=== PATIENT | male | born 1970 | race Caucasian/White ===

== ENCOUNTER 2022-04-07 15:57 | Emergency (ER) | payer SELFPAY ==
[2022-04-07] VITALS (8 sets, daily range): BP systolic 119–148; BP diastolic 66–102; PULSE 61–81; RESP 16; TEMP 36.6; O2SAT 97–99
--- NOTE | 2022-04-07 16:10 | W.ED.DIZZY ---
HPI - Dizziness General: Chief Complaint: Dizziness Stated Complaint: sob Time Seen by Provider: 04/07/22 16:10 History of Present Illness: HPI Narrative: Mr. Tidwell is a 52-year-old gentleman without significant past medical history presenting to the emergency department due to generalized illness. He reports a few day history of generalized malaise with cough and URI type symptoms. He took DayQuil but had some abdominal discomfort and hyperalgesic abdominal skin associated with this. When he stopped that he felt better however today he had onset of presyncopal type feeling associated with generalized malaise. Intensity symptoms is moderate to severe. Denies similar episodes in the past. No other specific changes in health, exacerbating, or alleviating factors identified. Onset (ago): day(s) Timing: sudden onset Severity: moderate Description: off-balance and near-syncope Context: recent illness History of similar symptoms: No Exacerbating factors: nothing Relieving factors: nothing Associated symptoms: Reports no associated symptoms and cough Associated neuro symptoms: Reports no associated symptoms Review of Systems General: Reports: 10 or more systems reviewed and unremarkable except in HPI and below PFSH ED PFSH: Medical History (Updated 04/15/22 @ 00:01 by KVNG Hendricks) No significant past medical history Surgical History (Updated 04/07/22 @ 16:27 by Andi Barboza MD) No significant past surgical history Social History (Updated 04/07/22 @ 16:27 by Andi Barboza MD) Smoking and tobacco status: current every day smoker Physical Exam Const: COMMON NORMALS: patient oriented x3 and alert GENERAL APPEARANCE: cooperative and well developed HENMT: COMMON NORMALS: normocephalic and atraumatic HEAD & SCALP: normocephalic and atraumatic Eye: COMMON NORMALS: conjunctivae normal CONJUNCTIVA: Yes conjunctivae normal SCLERA: sclerae normal Neck/C-Spine: COMMON NORMALS: supple GENERAL: Yes trachea midline Resp: COMMON NORMALS: clear to auscultation bilaterally EFFORT & INSPECTION: Yes able to speak in complete sentences AUSCULTATION: clear to auscultation bilaterally Cardio: COMMON NORMALS: regular rate and regular rhythm RATE: regular rate RHYTHM: regular rhythm GI: COMMON NORMALS: Soft to palpation PALPATION: Yes Soft to palpation and No Tenderness to palpation present (GI) Extremity: GENERAL: Yes normal exam except as noted and No edema Neuro: COMMON NORMALS: patient oriented x3, CN's II-XII intact bilaterally, moves all extremities, no focal motor deficits and no sensory deficits noted SENSORIUM/ORIENTATION: Yes alert and No Orientation impaired Psych: COMMON NORMALS: mental status grossly normal and Normal thought process present THOUGHT PROCESS: Normal thought process present Course Vital Signs: Vital signs: Vital Signs Temperature 98 F 04/07/22 16:00 Pulse Rate 61 04/07/22 17:38 Respiratory Rate 16 04/07/22 16:00 Blood Pressure 119/66 04/07/22 18:00 Pulse Oximetry 98 04/07/22 18:30 Oxygen Delivery Me thod 04/07/22 16:19 MDM - Dizziness Medical Decision Making 52-year-old gentleman presenting with generalized illness including off-and-on sensation. Exam as above. Patient is nontoxic in appearance. EKG notable for sinus rhythm, no STEMI. No significant hematologic or metabolic abnormalities. Urinalysis negative. Rapid COVID testing is positive. Chest x-ray with no lobar consolidation or pneumothorax. CT head negative for acute intracranial pathology. Given physical exam findings as well as laboratory results and clinical history I do not feel that further advanced imaging is necessary. Patient treated in the emergency department with IV fluids and analgesia. With improvement in symptoms. Most likely etiology of patient symptoms is COVID-19. Patient is not requiring oxygen and is able to tolerate p.o. intake. The results of ED evaluation were discussed with the patient including prescriptions and/or symptomatic cares (if applicable) including appropriate and responsible use, followup plan, and return precautions. The patient verbalized understanding and felt safe for discharge. Medical Records I reviewed the patient's medical records. Lab Data I reviewed the patient's lab results. 04/07/22 16:19 04/07/22 16:19 Radiology Impressions Chest X-Ray 04/07/22 16:22 IMPRESSION: No acute findings. Head CT 04/07/22 16:22 IMPRESSION: No acute intracranial abnormality. Laboratory Results WBC 4.2 10^3/uL (4.0-10.0) 04/07/22 16:19 RBC 5.06 10^6/uL (4.1-5.3) 04/07/22 16:19 Hgb 14.7 g/dL (11.7-16.6) 04/07/22 16:19 Hct 45.8 % (42.0-52.0) 04/07/22 16:19 MCV 90.5 fl (80-94) 04/07/22 16:19 MCH 29.1 pg (28.0-34.0) 04/07/22 16:19 MCHC 32.1 g/dL (30.0-36.0) 04/07/22 16:19 RDW 12.9 % (12.1-15.1) 04/07/22 16:19 Plt Count 208 10^3/cmm (130-400) 04/07/22 16:19 MPV 9.7 fL (7.4-10.4) 04/07/22 16:19 Neut % (Auto) 50.9 % 04/07/22 16:19 Lymph % (Auto) 34.9 % 04/07/22 16:19 [place] % (Auto) 12.0 % 04/07/22 16:19 Eos % (Auto) 1.2 % 04/07/22 16:19 Baso % (Auto) 0.5 % 04/07/22 16:19 Neut # (Auto) 2.11 10^3/uL (1.8-7.7) 04/07/22 16:19 Lymph # (Auto) 1.5 10^3/uL (0.8-4.8) 04/07/22 16:19 [place] # (Auto) 0.5 10^3/uL (0.2-0.9) 04/07/22 16:19 Eos # (Auto) 0.1 10^3/uL (0.0-0.8) 04/07/22 16:19 Baso # (Auto) 0.0 10^3/uL (0.0-0.1) 04/07/22 16:19 Nucleated RBC % (auto) 0 % 04/07/22 16:19 Nucleated RBCs # 0.0 /100WBC 04/07/22 16:19 Sodium 136 mmol/L (136-145) 04/07/22 16:19 Potassium 4.2 mmol/L (3.5-5.1) 04/07/22 16:19 Chloride 101 mmol/L (98-107) 04/07/22 16:19 Carbon Dioxide 24 mmol/L (22-29) 04/07/22 16:19 Anion Gap 15.2 (5-19) 04/07/22 16:19 BUN 18 mg/dL (6-20) 04/07/22 16:19 Creatinine 0.9 mg/dL (0.7-1.2) 04/07/22 16:19 GFR Calculation 87.9 mL/min (90-130) L 04/07/22 16:19 Glucose 105 mg/dL (65-115) 04/07/22 16:19 Calculated Osmolality 284 mOsm/kg (285-295) L 04/07/22 16:19 Calcium 9.5 mg/dL (8.5-10.5) 04/07/22 16:19 Magnesium 2.1 mg/dL (1.7-2.3) 04/07/22 16:19 Total Bilirubin 0.2 mg/dL (0.15-1.2) 04/07/22 16:19 AST 18 U/L (0-40) 04/07/22 16:19 ALT 22 U/L (0-41) 04/07/22 16:19 Alkaline Phosphatase 68 U/L (40-130) 04/07/22 16:19 Troponin T Baseline 7 ng/L (0-15) 04/07/22 16:19 Total Protein 7.0 g/dL (6.6-8.7) 04/07/22 16:19 Albumin 4.3 g/dL (3.5-5.2) 04/07/22 16:19 Globulin 2.7 g/dL (1.3-4.6) 04/07/22 16:19 TSH 2.73 uIU/mL (0.27-4.20) 04/07/22 16:19 Urine Color Yellow (Yellow) 04/07/22 18:00 Urine Appearance Clear (CLEAR) 04/07/22 18:00 Urine pH 5 (5-7) 04/07/22 18:00 Ur Specific [place] 1.015 (1.005-1.030) 04/07/22 18:00 Urine Protein Neg (Negative) 04/07/22 18:00 Urine Glucose (UA) Norm (Normal) 04/07/22 18:00 Urine Ketones Negative (Negative) 04/07/22 18:00 Urine Blood Neg (Negative) 04/07/22 18:00 Urine Nitrate Negative (Negative) 04/07/22 18:00 Urine Bilirubin Neg (Negative) 04/07/22 18:00 Urine Urobilinogen Norm mg/dL (Negative) 04/07/22 18:00 Ur Leukocyte Esterase Negative (Negative) 04/07/22 18:00 Influenza Type A Ag negative (Negative) 04/07/22 16:40 Influenza Type B Ag negative (Negative) 04/07/22 16:40 SARS-CoV-2 Ag (Rapid) positive (Negative) 04/07/22 16:40 Discharge Plan Discharge Patient Disposition: Home Clinical Impression: COVID-19, Dehydration Condition: Stable Discharge Orders: Discharge ED (Routine); Ordered 04/07/22 Ordered By: Andi Barboza Discharge Diet: Usual diet Discharge Activity: Increase activity as tolerated Patient Instructions: COVID-19 (Coronavirus Disease 2019) (ED) Activity Restrictions/Additional Instructions: Thank you for visiting the emergency department. You were seen and evaluated for generalized illness. The most likely cause of your symptoms is COVID-19 and mild dehydration. The treatment for COVID-19 is symptoms and ensuring hydration. You may use [id number] medications such as acetaminophen and ibuprofen for pain however please do not exceed the daily recommended dosage as listed on the packaging and please keep in mind that many namebrand medications contain the same active ingredients. Please avoid these medications if previously instructed to do so by another physician due to other underlying medical condition. Please follow-up with a primary care provider. Return to the emergency department for worsening symptoms or anything else that you are concerned about and feel needs emergency department evaluation. Coding Level of Care Code ED Contour Sander for Ceci Silva Exam Comprehensive
--- NOTE | 2022-04-07 16:22 | XRR_ITS ---
PROCEDURE INFORMATION: Exam: XR Chest Exam date and time: 04/07/2022 5:52 PM Age: 52 years old Clinical indication: Cough; Patient HX: Covid pos TECHNIQUE: Imaging protocol: Radiologic exam of the chest. Views: 1 view. COMPARISON: No relevant prior studies available. FINDINGS: Lungs: Unremarkable. No consolidation. Pleural spaces: Unremarkable. No pleural effusion. No pneumothorax. Heart/Mediastinum: Unremarkable. No cardiomegaly. Bones/joints: No acute abnormality. XR/XR chest 1V portable [id number] IMPRESSION: No acute findings.
--- NOTE | 2022-04-07 16:22 | CTR_ITS ---
PROCEDURE INFORMATION: Exam: CT Head Without Contrast Exam date and time: 04/07/2022 5:46 PM Age: 52 years old Clinical indication: Fever; Additional info: Unsteady feeling TECHNIQUE: Imaging protocol: Computed tomography of the head without contrast. Radiation optimization: All CT scans at this facility use at least one of these dose optimization techniques: automated exposure control; mA and/or kV adjustment per patient size (includes targeted exams where dose is matched to clinical indication); or iterative reconstruction. COMPARISON: No relevant prior studies available. RADIATION DOSE METRICS: Total DLP (mGy-cm): 1090.2 FINDINGS: Brain: Normal. No hemorrhage. Unremarkable white matter. No mass effect. Cerebral ventricles: No ventriculomegaly. Paranasal sinuses: Visualized sinuses are unremarkable. No fluid levels. Mastoid air cells: Visualized mastoid air cells are well aerated. Bones/joints: Unremarkable. No acute fracture. Soft tissues: Unremarkable. CT/CT head wo con* [id number] IMPRESSION: No acute intracranial abnormality.
--- NOTE | 2022-04-07 16:23 | ECG_ITS ---
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 Measurements Intervals [place] Rate: 74 P: 57 ME: 148 QRS: 64 QRSD: 108 T: 69 QT: 358 QTc: 398 Interpretive Statements SINUS RHYTHM ST ELEVATION, PROBABLY EARLY REPOLARIZATION [ST ELEVATION WITH NORMALLY INFLECTED T-WAVE] No previous ECG available for comparison Electronically Signed On 04-07-2022 20:06:38 FINANCE EXECUTIVE by Agatha Huerta M.D. [email or web address]
[2022-04-07 16:33] LABS: Basophils % 0.5 %; Eosinophils # 0.1 10^3/uL (0.0-0.8); Eosinophils % 1.2 %; Hematocrit 45.8 % (42.0-52.0); Hemoglobin 14.7 g/dL (11.7-16.6); Lymphocytes # 1.5 10^3/uL (0.8-4.8); Lymphocytes % 34.9 %; Mean Corpuscular HGB Conc 32.1 g/dL (30.0-36.0); Mean Corpuscular Hemoglobin 29.1 pg (28.0-34.0); Mean Corpuscular Volume 90.5 fl (80-94); Mean Platelet Volume 9.7 fL (7.4-10.4); Monocytes # 0.5 10^3/uL (0.2-0.9); Neutrophils # 2.11 10^3/uL (1.8-7.7); Neutrophils % 50.9 %; Nucleated Red Blood Cells % 0 %; Platelet Count 208 10^3/cmm (130-400); Red Blood Count 5.06 10^6/uL (4.1-5.3); Red Cell Distribution Width 12.9 % (12.1-15.1); White Blood Count 4.2 10^3/uL (4.0-10.0)
[2022-04-07] MEDS: sodium chloride 0.9% 1,000 ML 999 ML IV (16:44)
[2022-04-07 17:08] LABS: Influenza A by IFA negative (Negative); Influenza B by IFA negative (Negative); SARS Covid-2 Antigen positive (Negative)
[2022-04-07 17:18] LABS: Troponin(5th) Baseline 7 ng/L (0-15)
[2022-04-07 17:28] LABS: Alanine Aminotransferase 22 U/L (0-41); Albumin Level 4.3 g/dL (3.5-5.2); Alkaline Phosphatase 68 U/L (40-130); Aspartate Amino Transferase 18 U/L (0-40); Blood Urea Nitrogen 18 mg/dL (6-20); Calcium 9.5 mg/dL (8.5-10.5); Carbon Dioxide 24 mmol/L (22-29); Chloride 101 mmol/L (98-107); Globulin 2.7 g/dL (1.3-4.6); Glomerular Filtration Rate 87.9 mL/min (90-130); Glucose 105 mg/dL (65-115); Magnesium 2.1 mg/dL (1.7-2.3); Osmolality Calculated 284 mOsm/kg (285-295); Sodium 136 mmol/L (136-145); Thyroid Stimulating Hormone 2.73 uIU/mL (0.27-4.20); Total Bilirubin 0.2 mg/dL (0.15-1.2)
[2022-04-07 17:34] LABS: Anion Gap 15.2 (5-19); Potassium 4.2 mmol/L (3.5-5.1)
[2022-04-07 18:10] LABS: Add Urine Microscopic? NO; Charge for UA Resulting for Rev
[2022-04-07 18:30] LABS: Bilirubin Urine Neg (Negative); Blood Urine Neg (Negative); Glucose Urine UA Norm (Normal); Ketones Urine Negative (Negative); Leukocyte Esterase Urine Negative (Negative); Nitrate Urine Negative (Negative); Protein Urine Neg (Negative); Specific Gravity, Urine 1.015 (1.005-1.030); Urine Appearance Clear (CLEAR); Urine Color Yellow (Yellow); Urobilinogen Urine Norm (Negative); pH Urine 5 (5-7)
[2022-04-07] MEDS: ketorolac 30 mg/mL INJ 15 MG IVP (18:47)
== END 2022-04-07 18:54 | disposition home or self-care (01) ==
PROVIDERS: Emergency Provider Emergency Medicine
DX: U07.1 COVID-19 (principal); E86.0 Dehydration; F17.210 Nicotine dependence, cigarettes, uncomplicated
CPT/HCPCS: 70450; 71045; 80053; 81003; 83735; 84443; 84484; 85025; 87426; 87804; 93005; 96361; 96374; 99285; J1885; J7030